=== PATIENT | male | born 1990 | race Hispanic/Latino ===

== ENCOUNTER 2018-04-21 12:03 | Emergency (ER) | payer OTHER, SELFPAY ==
[2018-04-21 12:07] VITALS: BP 133/76; PULSE 79; RESP 15; TEMP 36.2; O2SAT 98; BMI 32.3
--- NOTE | 2018-04-21 14:03 | ED.MALEGU ---
HPI - Male Genitourinary General Chief complaint: Urogenital-Male Stated complaint: STATES TESTICULAR PAIN AND BACK PAIN Time Seen by Provider: 04/21/18 13:47 Source: patient Mode of arrival: ambulatory Limitations: no limitations History of Present Illness HPI Narrative: 27-year-old male here for evaluation of left-sided testicular pain. He states that it started approximately 36 hr ago. No trauma. No inciting incident. No urinary symptoms. He states he has been diagnosed with epididymitis in the past. He states it was the ?non infectious ?kind. He states he is not concerned about a STD. No trauma. No changes in bowel. Related Data Home Medications Medication Instructions Recorded Confirmed carboxymethylcellulose sodium 1 drp OPHTHALMIC (EYE) DIRECTED 04/21/18 04/21/18 [Refresh Tears] diphenhydramine HCl [Benadryl] 25 mg PO BEDTIME PRN 04/21/18 04/21/18 Allergies Allergy/AdvReac Type Severity Reaction Status Date / Time No Known Drug Allergies Allergy Verified 04/21/18 12:07 Review of Systems Constitutional Denies fatigue and Denies fever(s) Cardiovascular Denies chest pain and Denies dyspnea Respiratory Denies dyspnea Gastrointestinal Gastrointestinal: Denies abdominal pain Genitourinary Denies hematuria, Denies difficulty urinating, Denies genital lesions, Reports genital pain, Denies flank pain, Denies penile discharge, Denies scrotal swelling, Denies testicular mass, Reports testicular pain, Denies urinary frequency, Denies urinary hesitancy, Denies urinary incontinence and Denies urinary urgency Musculoskeletal Denies myalgias and Denies arthralgias Integumentary/Breasts Denies lesions and Denies rash Endocrine Denies fatigue Hematologic/Lymphatic Denies easy bleeding and Denies easy bruising [facility] Medical History Healthy adult (Acute) Surgical History No pertinent past surgical history (Acute) Social History Smoking Status: Never smoker Exam Initial Vital Signs Initial Vital Signs: Vital Signs Temperature 97.2 F L 04/21/18 12:07 Pulse Rate 79 04/21/18 12:07 Respiratory Rate 15 04/21/18 12:07 Blood Pressure 133/76 H 08/21/18 12:07 Pulse Oximetry 98 04/21/18 12:07 Const General: cooperative, healthy appearing, comfortable, well developed, well groomed and No acute distress Orientation: alert and oriented x3 Resp Effort & Inspection: normal respiratory effort GI Inspection: non-distended Palpation: soft, No firm and No tender External: normal external exam, no hernia and nontender Meatus: meatus normal Scrotum: scrotum normal, no inguinal hernias, no masses and no scrotal swelling Testes: normal, testicular lie normal, epididymides normal, not enlarged, no masses, no testicular mass, no testicular swelling, no testicular tenderness and normal testicular lie Skin Lesions: no lesions Rashes: no rashes Neuro General: alert, awake and oriented x3 Extrem General: normal to inspection Psych Appearance: grossly normal and well kempt Course Orders Ordered: ED Orders 04/21/18 14:04 US scrotum Stat Vital Signs - 8 hr 04/21/18 12:07 04/21/18 14:49 Temperature 97.2 F L Pulse Rate 79 62 Respiratory Rate 15 15 Blood Pressure 133/76 H Blood Pressure [Left Arm] 131/75 H Pulse Oximetry 98 100 MDM - Male Genitourinary Imaging Data Ultrasound scrotum: Radiologist's impression: [address] [address] Ultrasound Report Signed Patient: León Cantrell [facility]#: [id number] : 1990Acct:[id number] Age/Sex: 27 / MDate of Service: 04/21/18 Loc: ED Accession Number: [id number] Procedure: US scrotum Ordering Provider: Ronnie De Oliveira D.O. PROCEDURE: US SCROTUM INDICATIONS: Left testicular pain concern for torsion TECHNIQUE: Real-time scanning was performed of the scrotum and testicles, with image documentation. Color and pulse Doppler interrogation was performed of both testicles. COMPARISON: None. FINDINGS: Right: Testicle is normal in size at 4.7 x 2.1 x 2 point cm, and homogenous in echotexture. Epididymis is normal in overall size and morphology. No hydrocele or varicoceles. Overlying scrotal skin is normal in thickness. Left: Testicle is normal in size at 4.5 x 2.2 x 3.3 cm cm, and homogeneous in echotexture. Epididymis is normal in overall size and morphology. No hydrocele or varicoceles. Overlying scrotal skin is normal in thickness. Small epididymal head cysts are identified measuring 4-5 mm. Doppler: Color and pulse Doppler demonstrate normal and symmetric arterial flow in both testicles. IMPRESSION: Unremarkable testicular sonogram. There is no evidence of testicular torsion, epididymal orchitis, or testicular mass. Dictated by: Noah Perez M.D. on 04/21/2018 at 14:46 Approved by: Noah Perez M.D. on 04/21/2018 at 14:50 MDM Narrative Medical decision making narrative: No signs of torsion. Urine unremarkable. No fevers. Benign abdominal exam. Suspect epididymitis. Patient states that he is not concerned about any sexually transmitted diseases. Does not want treated for that. We discussed symptom treatment to include nonsteroidal anti-inflammatories support and ice. He was given return precautions. He expressed understanding and agreement with plan Discharge Plan Departure Patient Disposition: Home Clinical Impression: Epididymitis Instructions: Epididymitis Activity Restrictions/Additional Instructions: Recommend that you wear supportive clothing. You can take Motrin/ibuprofen every 8 hr for discomfort. You can ice the area as needed as well. Call your primary care doctor for a follow-up. Return to the emergency department for any new or worsening symptoms Prescriptions: No Action carboxymethylcellulose sodium [Refresh Tears] 0.5 % drops 1 drp ophthalmic (eye) DIRECTED RF: 0 diphenhydramine HCl [Benadryl] 25 mg Capsule 25 mg PO BEDTIME PRN (Reason: Sleep) RF: 0
[2018-04-21 14:49] VITALS: BP 131/75; PULSE 62; RESP 15; O2SAT 100
[2018-04-21] MEDS: IBUPROFEN 400 MG TABLET 800 MG PO (16:15)
[2018-04-21 16:26] VITALS: BP 134/78; PULSE 72; RESP 12; O2SAT 100
== END 2018-04-21 16:27 | disposition home or self-care (01) ==
PROVIDERS: Emergency Provider Emergency Medicine
DX: N45.1 Epididymitis (principal)
CPT/HCPCS: 76870; 81003; 99283; 99284

== ENCOUNTER 2018-07-25 20:27 | Emergency (ER) | payer OTHER, SELFPAY ==
[2018-07-25 20:34] VITALS: BP 134/79; PULSE 97; RESP 16; TEMP 36.9; O2SAT 97; BMI 33.9
[2018-07-25 20:40] VITALS: BP 134/79; PULSE 97; RESP 16; TEMP 36.9; O2SAT 94; BMI 33.9
--- NOTE | 2018-07-25 20:44 | ED.URI ---
HPI - URI/Sore Throat <ONDINA Li - Last Filed: 07/25/18 22:19> General Chief Complaint: Upper Respiratory Symptoms Stated Complaint: SORE THROAT FOR THREE WEEKS Time Seen by Provider: 07/25/18 20:44 Source: patient Mode of arrival: ambulatory Limitations: no limitations History of Present Illness HPI Narrative: Healthy 27-year-old healthy male that is a nonsmoker here for complaint of sore throat for the past 3 weeks. He has been seen for this a couple times by his primary care provider. He was treated with steroids and Garita for his pain. He states that it helped his symptoms for couple of days but then returned. He states that the pain medications are not helping his symptoms. He denies having any fevers. Positive p.o. intake. No shortness of breath. No chest pain. He denies any other concerns or complaints at this time. He denies any stressors relievers of his pain. MD Complaint: sore throat Related Data Home Medications Medication Instructions Recorded Confirmed carboxymethylcellulose sodium 1 drp OPHTHALMIC (EYE) DIRECTED 04/21/18 04/21/18 [Refresh Tears] diphenhydramine HCl [Benadryl] 25 mg PO BEDTIME PRN 04/21/18 04/21/18 Allergies Allergy/AdvReac Type Severity Reaction Status Date / Time fluoxetine Allergy Verified 07/25/18 20:34 Review of Systems <ONDINA Li - Last Filed: 07/25/18 22:19> Constitutional Denies chills, Denies fever(s), Denies lethargy and Denies weakness Eyes Denies change in vision, Denies eye discharge, Denies irritation and Denies loss of vision ENT Ears, Nose, Mouth, and Throat: Reports sore throat Cardiovascular Denies chest pain, Denies irregular heart rhythm, Denies lightheadedness, Denies palpitations, Denies dyspnea, Denies dyspnea on exertion and Denies orthopnea Respiratory Denies cough, Denies dyspnea, Denies dyspnea on exertion and Denies wheezing Gastrointestinal Gastrointestinal: Denies abdominal pain, Denies change in bowel habits, Denies diarrhea, Denies nausea and Denies vomiting Genitourinary Denies hematuria, Denies flank pain, Denies urinary incontinence and Denies urinary urgency Musculoskeletal Denies back pain, Denies muscle weakness, Denies numbness and Denies tingling Integumentary/Breasts Denies pruritus, Denies erythema, Denies rash and Denies wounds Neurologic Denies confusion, Denies loss of vision, Denies numbness, Denies tingling and Denies weakness Psychiatric Denies anxiety, Denies confusion, Denies depression, Denies homicidal ideation and Denies suicidal ideation Endocrine Denies palpitations Hematologic/Lymphatic Denies easy bruising Allergic/Immunologic Denies wheezing Exam <ONDINA Li - Last Filed: 07/25/18 22:19> Initial Vital Signs Initial Vital Signs: Vital Signs Temperature 98.5 F 07/25/18 20:34 Pulse Rate 97 H 07/25/18 20:34 Respiratory Rate 16 07/25/18 20:34 Blood Pressure 134/79 07/25/18 20:34 Pulse Oximetry 97 07/25/18 20:34 Const General: cooperative and well developed Nutritional Appearance: well nourished Orientation: alert, awake, oriented x3 and not confused HENMT Mouth: oral mucosae normal, oropharynx normal and moist mucous membranes Throat: posterior oropharynx normal Eyes General: appearance normal, both eyes and all related structures Conjunctivae: conjunctivae normal Sclera: sclerae normal Pupils: PERRL EOM: EOM intact bilaterally Neck Neck: normal visual inspection, trachea midline, No lymphadenopathy, No midline deformity and No JVD Lymphatic: No lymphedema Resp Effort & Inspection: normal respiratory effort, able to speak in complete sentences, no respiratory distress and no use of accessory muscles Auscultation: clear to auscultation bilaterally, no rales, no rhonchi and no wheezes Cardio Rate: regular rate Rhythm: regular rhythm Heart Sounds: no click, no gallops, no murmurs and no rubs Skin General: no rashes or lesions noted, No jaundice and No petechiae Neuro General: alert, oriented x3, gait normal and no focal motor deficits Speech: speech normal <Garfield Contreras DO - Last Filed: 07/26/18 06:21> Initial Vital Signs Initial Vital Signs: Vital Signs Temperature 98.5 F 07/25/18 20:34 Pulse Rate 97 H 07/25/18 20:34 Respiratory Rate 16 07/25/18 20:34 Blood Pressure 134/79 07/25/18 20:34 Pulse Oximetry 97 07/25/18 20:34 Course <ONDINA Li - Last Filed: 07/25/18 22:19> Orders Ordered: Discontinued Medications Benzocaine (Cepacol Lozenge) 1 each PO NOW ONE Stop: 07/25/18 22:16 Last Admin: 07/25/18 22:22 Dose: Vital Signs - 8 hr 07/25/18 22:23 Pulse Rate 83 Respiratory Rate 18 Pulse Oximetry 97 <Garfield Contreras DO - Last Filed: 07/26/18 06:21> Orders Ordered: Discontinued Medications Benzocaine (Cepacol Lozenge) 1 each PO NOW ONE Stop: 07/25/18 22:16 Last Admin: 07/25/18 22:22 Dose: Vital Signs - 8 hr 07/25/18 22:23 Pulse Rate 83 Respiratory Rate 18 Pulse Oximetry 97 MDM - URI/Sore Throat <ONDINA Li - Last Filed: 07/25/18 22:19> Lab Data Lab Results 07/25/18 Range/Units 21:20 Influenza A & B (PCR) Negative (Negative) Point of Care Testing Rapid Strep A Negative MDM Narrative Medical decision making narrative: Rapid strep test was obtained was negative. Influenza swab was also obtained and was negative. Normal exam do not see any abnormalities to the posterior pharynx area. Suspect he has had multiple viral illnesses over the past several weeks. Plenty of fluids and rest. [id number] ibuprofen as needed for any discomfort and salt water gargles a few times a day to help with irritation to the throat. Recommend follow up primary care for the next few days for re-evaluation. If continued pain discussed with primary care provider ENT referral for further evaluation. For any worsening symptoms return emergency room. <Garfield Contreras DO - Last Filed: 07/26/18 06:21> Lab Data Lab Results 07/25/18 Range/Units 21:20 Influenza A & B (PCR) Negative (Negative) Point of Care Testing Rapid Strep A Negative Discharge Plan Departure Patient Disposition: Home Clinical Impression: Acute viral pharyngitis Discharge Date/Time: 07/25/18 22:24 Interventions: ED Discharge Assessment Last Done: 07/25/18 22:23 Instructions: DI for Viral Pharyngitis Activity Restrictions/Additional Instructions: Influenza swab and also 0 strep was negative. Signs and symptoms presents as viral pharyngitis. However due to length of symptoms recommend follow up primary care provider next few days for re-evaluation. Use [id number] ibuprofen as needed for any discomfort and inflammation. Plenty of fluids and rest. Salt water gargles a few times today to help inflammation to the sore throat area. If symptoms do not resolve discussed with primary care provider referral to ENT. For any worsening symptoms return to the emergency room. Prescriptions: No Action carboxymethylcellulose sodium [Refresh Tears] 0.5 % drops 1 drp ophthalmic (eye) DIRECTED RF: 0 diphenhydramine HCl [Benadryl] 25 mg Capsule 25 mg PO BEDTIME PRN (Reason: Sleep) RF: 0 Referrals: [facility] [Provider Group] <Garfield Contreras, - Last Filed: 07/26/18 06:21> Cosign ED Attending Smiley Attestation: I was immediately available in the department for consultation. Documentation has been reviewed. I agree with assessment and plan.
[2018-07-25 22:12] LABS: Influenza A and B by PCR Rapid Negative (Negative)
[2018-07-25 22:23] VITALS: PULSE 83; RESP 18; O2SAT 97
== END 2018-07-25 22:24 | disposition home or self-care (01) ==
PROVIDERS: Emergency Provider Nurse Practitioner Family
DX: J02.8 Acute pharyngitis due to other specified organisms (principal)
CPT/HCPCS: 87400; 87880; 99282; 99283

== ENCOUNTER 2018-10-08 17:33 | Emergency (ER) | payer OTHER, SELFPAY ==
[2018-10-08 17:35] VITALS: BP 136/82; PULSE 85; RESP 18; TEMP 36.8; O2SAT 98
--- NOTE | 2018-10-08 17:37 | DI.RAD.S_ITS ---
PROCEDURE: XR CHEST 1V INDICATIONS: Chest pain TECHNIQUE: One view of the chest was acquired. COMPARISON: None. FINDINGS: Surgical changes and devices: None. Lungs and pleura: An incomplete inspiratory result is noted, causing a crowded appearance to the lung markings. No focal infiltrates are seen. No pneumothorax or significant pleural effusions are seen. Mediastinum: Mediastinal contours appear normal. Heart size is normal. Bones and chest wall: No suspicious bony lesions. Overlying soft tissues appear unremarkable. IMPRESSION: Limited portable chest examination, without a significant cardiopulmonary abnormality identified. Dictated by: Jose Arellano M.D. on 10/08/2018 at 17:06 Approved by: Jose Arellano M.D. on 10/08/2018 at 17:07
[2018-10-08 17:53] VITALS: BP 136/82; PULSE 78; RESP 16; TEMP 36.8; O2SAT 96
--- NOTE | 2018-10-08 18:07 | PC.NURSE ---
Per Dr De Oliveira, orders will wait until eval by Dr Yepez
[2018-10-08 18:39] VITALS: BP 110/59; PULSE 81; RESP 17; O2SAT 98
--- NOTE | 2018-10-08 18:50 | ED_ITS ---
HPI - Chest Pain General Chief Complaint: Chest Pain Stated Complaint: CHEST PAIN Time Seen by Provider: 10/08/18 17:48 Source: patient Mode of arrival: ambulatory Limitations: no limitations History of Present Illness HPI narrative: patient is a 28-year-old male who presents with heart fluttering. As he says he felt some chest discomfort last night felt like his heart was flip-flopping around in his chest. He took 2 aspirin at stopped. His however today he felt like things just were not quite right again. It is in the center of his chest nonradiating. His last night he felt a little short of breath but has not felt that today. He has no dizziness or lightheadedness no productive cough. He denies any smoking or alcohol use. He says he started taking Adderall however it is a low dose 2.5 mg and he took his 1st dose 2 days ago nothing since then. Related Data Home Medications Medication Instructions Recorded Confirmed carboxymethylcellulose sodium 1 drp OPHTHALMIC (EYE) DIRECTED 04/21/18 04/21/18 [Refresh Tears] diphenhydramine HCl [Benadryl] 25 mg PO BEDTIME PRN 04/21/18 04/21/18 Allergies Allergy/AdvReac Type Severity Reaction Status Date / Time fluoxetine Allergy Verified 07/25/18 20:34 Review of Systems Review of Systems GENERAL: Denies chills, fatigue, malaise, fever, sweats, travel HEENT: Denies sinus pain, ear pain, sore throat, difficulty swallowing, neck pain RESPIRATORY: Denies dyspnea, cough, wheezing, hemoptysis, sputum. CARDIOVASCULAR: See HPI GASTROINTESTINAL: Denies nausea, vomiting, abdominal pain, diarrhea, constipation, melena. : Denies dysuria, frequency, incontinence, hematuria, urinary retention, flank pain. MUSCULOSKELETAL: Denies weakness, joint pain, or bony pain SKIN: No rash, no erythema, no pruritus NEUROLOGIC: Denies weakness, dizziness, headache, numbness, change in speech, confusion PSYCHIATRIC: No concerning psychosocial issues. 12 point review of systems is negative except for those stated above and HPI PFSH Medical History Adult ADHD (Acute) Healthy adult (Acute) Surgical History No pertinent past surgical history (Acute) Social History Smoking Status: Never smoker Social History Smoking Status: Never smoker Exam Initial Vital Signs Initial Vital Signs: Vital Signs Temperature 98.3 F 10/08/18 17:35 Pulse Rate 85 10/08/18 17:35 Respiratory Rate 18 10/08/18 17:35 Blood Pressure 136/82 10/08/18 17:35 Pulse Oximetry 98 10/08/18 17:35 GENERAL: Alert young male no acute distress HEENT: Head atraumatic,EOMI, pupils reactive CARDIOVASCULAR: Regular rate and rhythm without murmurs, rubs or gallops. pain is not reproducible with palpation RESPIRATORY: Breath sounds equal bilaterally, no wheezes rales or rhonchi. ABDOMEN: Soft, nontender. Normoactive bowel sounds all 4 quadrants. No guarding or rebound EXTREMITIES: Normal range of motion, no clubbing or edema. Neurovascularly intact NEUROLOGICAL: Alert and oriented x4.Normal gait and speech. Cranial nerves II through XII grossly intact. SKIN: Warm, dry, no laceration, no petechiae, no rashes or lesions. Course Orders Ordered: ED Orders 10/08/18 17:37 XR chest 1V Stat EKG-12 Lead Stat 10/08/18 18:40 EKG-12 Lead Stat 10/08/18 18:45 Complete Blood Count AUTO DIFF Stat Comprehensive Metabolic Panel Stat Lipase Stat Troponin & CK Cardiac Panel Stat Discontinued Medications Aspirin (Aspirin Chew) 324 mg PO NOW ONE Stop: 10/08/18 18:41 Last Admin: 10/08/18 19:03 Dose: Not Given Vital Signs - 8 hr 10/08/18 17:35 10/08/18 17:53 10/08/18 18:39 Temperature 98.3 F 98.3 F Pulse Rate 85 78 81 Respiratory Rate 18 16 17 Blood Pressure 136/82 Blood Pressure [Left Arm] 136/82 110/59 L Pulse Oximetry 98 96 98 10/08/18 19:42 Temperature Pulse Rate 93 H Respiratory Rate 21 Blood Pressure 118/55 L Blood Pressure [Left Arm] Pulse Oximetry 96 MDM - Chest Pain Lab Data Attestation: I reviewed the patient's lab results. Result diagrams: 10/08/18 18:45 10/08/18 18:45 Lab Results 10/08/18 10/08/18 Range/Units 18:45 18:45 WBC 9.9 (4.5-11.0) X10^3/uL RBC 5.17 (4.5-5.9) X10^6/uL Hgb 15.7 (13.5-17.5) g/dL Hct 45.9 (41-53) % MCV 88.7 (80-100) fL MCH 30.3 (26-34) PG MCHC 34.2 (30-36) % RDW 14.1 (11.6-14.8) % Plt Count 188 (150-400) X10^3/uL Neut % (Auto) 65.4 (50-75) % Lymph % (Auto) 24.8 L (25-40) % Greenlee % (Auto) 8.3 (3-14) % Eos % (Auto) 0.8 L (2-4) % Baso % (Auto) 0.7 (0-2) % Neut # (Auto) 6400 (7541-1666) /uL Lymph # (Auto) 2400 (9290-1287) /uL Greenlee # (Auto) 800 (0-900) /uL Eos # (Auto) 100 (0-450) /uL Baso # (Auto) 100 (0-100) /uL Sodium 140 (137-145) mmol/L Potassium 4.1 (3.4-5.1) mmol/L Chloride 104 (98-107) mmol/L Carbon Dioxide 26 (22-32) mmol/L BUN 18 (9-20) mg/dL Creatinine 1.10 (0.66-1.25) mg/dL Estimated GFR > 60.0 (>60) mL/min BUN/Creatinine Ratio 16.4 (6-22) Glucose 98 (70-100) mg/dL Calcium 9.3 (8.4-10.2) mg/dL Total Bilirubin 0.4 (0.2-1.3) mg/dL AST 27 (17-59) IU/L ALT 47 (21-72) IU/L Alkaline Phosphatase 64 (38-126) U/L Total Creatine Kinase 76 (55-170) U/L CK-MB (CK-2) TNP CK-MB (CK-2) Rel Index TNP Troponin I < 0.012 (0.01-0.034) ng/mL Total Protein 7.8 (6.3-8.2) g/dL Albumin 4.5 (3.5-5.0) g/dL Globulin 3.3 (1.7-4.1) g/dL Albumin/Globulin Ratio 1.4 (1.0-2.8) Lipase 82 (23-300) U/L Imaging Data Chest x-ray: Radiologist's impression: PROCEDURE: XR CHEST 1V INDICATIONS: Chest pain TECHNIQUE: One view of the chest was acquired. COMPARISON: None. FINDINGS: Surgical changes and devices: None. Lungs and pleura: An incomplete inspiratory result is noted, causing a crowded appearance to the lung markings. No focal infiltrates are seen. No pneumothorax or significant pleural effusions are seen. Mediastinum: Mediastinal contours appear normal. Heart size is normal. Bones and chest wall: No suspicious bony lesions. Overlying soft tissues appear unremarkable. IMPRESSION: Limited portable chest examination, without a significant cardiopulmonary abnormality identified. Dictated by: Jose Arellano M.D. on 10/08/2018 at 17:06 ECG Data Attestation: I personally reviewed and interpreted this ECG as follows: Prior ECG tracings: not available for review Interpretation: EKG 1.: Normal sinus rhythm rate 78 T-wave inversion noted in lead [address] changes ER interval 180 no priors to compare EKG 2.: Normal sinus rhythm rate 69 unchanged from prior MDM Narrative Medical decision making narrative: Multiple etiologies for patient's symptoms considered including: arrhythmia, paroxysmal AFib, PE, acute coronary syndrome, GERD patient having palpitations, sinus rhythm on monitor. Recommend patient follow up with PCP as and possible Holter monitor. Discharge Plan Departure Patient Disposition: Home Clinical Impression: Heart palpitations Discharge Date/Time: 10/08/18 19:43 Interventions: ED Discharge Assessment Last Done: 10/08/18 19:42 Instructions: DI for Atypical Chest Pain, DI for Palpitations Activity Restrictions/Additional Instructions: *You have been diagnosed with heart palpitations, atypical chest pain *What to do: may require Holter monitor which monitor she your heart rhythm. Please discuss this with her primary care provider. At this time blood work x- ray and EKG are Reassuring *Continue to take medications as directed *Follow up with your primary care provider in 2-3 days *Return to ER if you should have increasing heart palpitations, dizziness, lightheadedness, chest pain or any new, worsening or concerning symptoms Prescriptions: No Action carboxymethylcellulose sodium [Refresh Tears] 0.5 % drops 1 drp ophthalmic (eye) DIRECTED RF: 0 diphenhydramine HCl [Benadryl] 25 mg Capsule 25 mg PO BEDTIME PRN (Reason: Sleep) RF: 0 [facility]: [facility] [Provider Group]
[2018-10-08 19:13] LABS: Add Manual Diff / Slide Review NO; Basophils Absolute Auto 100 /uL (0-100); Basophils Percent Auto 0.7 % (0-2); Eosinophils Absolute Auto 100 /uL (0-450); Eosinophils Percent Auto 0.8 % (2-4); Hematocrit 45.9 % (41-53); Hemoglobin 15.7 g/dL (13.5-17.5); Lymphocytes Absolute Auto 2400 /uL (1100-4500); Lymphocytes Percent Auto 24.8 % (25-40); Mean Corpuscular HGB Conc 34.2 % (30-36); Mean Corpuscular Hemoglobin 30.3 PG (26-34); Mean Corpuscular Volume 88.7 fL (80-100); Monocytes Absolute Auto 800 /uL (0-900); Monocytes Percent Auto 8.3 % (3-14); Neutrophils Absolute Auto 6400 /uL (1500-7000); Neutrophils Percent Auto 65.4 % (50-75); Platelet Count 188 X10^3/uL (150-400); Red Blood Cell Count 5.17 X10^6/uL (4.5-5.9); Red Cell Distribution Width 14.1 % (11.6-14.8); White Blood Cell Count 9.9 X10^3/uL (4.5-11.0)
[2018-10-08 19:18] LABS: Alanine Aminotransferase 47 IU/L (21-72); Albumin 4.5 g/dL (3.5-5.0); Albumin Globulin Ratio 1.4 (1.0-2.8); Alkaline Phosphatase 64 U/L (38-126); Aspartate Aminotransferase 27 IU/L (17-59); BUN Creatinine Ratio 16.4 (6-22); Bilirubin Total 0.4 mg/dL (0.2-1.3); Blood Urea Nitrogen 18 mg/dL (9-20); Calcium 9.3 mg/dL (8.4-10.2); Carbon Dioxide 26 mmol/L (22-32); Chloride 104 mmol/L (98-107); Creatine Kinase 76 U/L (55-170); Estimated Glomerular Filt Rate > 60.0 mL/min (>60); Globulin 3.3 g/dL (1.7-4.1); Glucose 98 mg/dL (70-100); HEMOLYSIS 29 (0-50); Lipase 82 U/L (23-300); Potassium 4.1 mmol/L (3.4-5.1); Sodium 140 mmol/L (137-145); Total Protein 7.8 g/dL (6.3-8.2)
[2018-10-08 19:33] LABS: Troponin I < 0.012 ng/mL (0.01-0.034)
[2018-10-08 19:42] VITALS: BP 118/55; PULSE 93; RESP 21; O2SAT 96
== END 2018-10-08 19:43 | disposition home or self-care (01) ==
PROVIDERS: Emergency Provider Emergency Medicine
DX: R00.2 Palpitations (principal)
CPT/HCPCS: 36415; 36591; 71045; 80053; 82550; 83690; 84484; 85025; 93005; 93041; 99284; 99285

== ENCOUNTER 2018-12-14 21:01 | Emergency (ER) | payer OTHER, SELFPAY ==
[2018-12-14 21:03] VITALS: BP 122/76; PULSE 72; RESP 14; TEMP 36.7; O2SAT 100
[2018-12-14 23:59] VITALS: BP 112/72; PULSE 62; RESP 16; TEMP 36.6; O2SAT 98
--- NOTE | 2018-12-15 00:39 | ED_ITS ---
HPI - Anxiety General Chief Complaint: Anxiety Stated Complaint: ANXIETY Time Seen by Provider: 12/15/18 00:38 Source: patient Mode of arrival: ambulatory Limitations: no limitations History of Present Illness HPI narrative: The patient is a [place] . 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 He moved to this area from [place] 4 months ago. He has been under treatment for PTSD, opting for counseling. He is currently under no medications for PTSD treatment. He has not sought out a new counselor since moving to this area. He was out with friends 2 days ago. He had several alcoholic drinks. He developed anxiety yesterday. The anxiety persists today. When I entered the room he was up and pacing around the room. He is not experience insomnia. He denies depression. He has no crying episodes. He is not experiencing flashbacks. He has no suicidal or homicidal thought. He does not drink alcohol daily, he was out for a week and with friends. He has no drug use. Related Data Home Medications Medication Instructions Recorded Confirmed carboxymethylcellulose sodium 1 drp OPHTHALMIC (EYE) DIRECTED 04/21/18 04/21/18 [Refresh Tears] diphenhydramine HCl [Benadryl] 25 mg PO BEDTIME PRN 04/21/18 04/21/18 Previous Rx's Medication Instructions Recorded lorazepam [Ativan] 1 mg PO Q12H PRN #10 tab 12/15/18 Allergies Allergy/AdvReac Type Severity Reaction Status Date / Time fluoxetine Allergy Verified 12/14/18 21:05 Review of Systems Review of Systems ROS Unobtainable: All systems reviewed & are unremarkable except as noted in HPI and below Constitutional Denies headache(s) and Denies weakness ENT Ears, Nose, Mouth, and Throat: Denies dizziness and Denies headache(s) Cardiovascular Denies chest pain, Denies irregular heart rhythm, Denies lightheadedness, Denies palpitations and Denies dyspnea Respiratory Denies cough, Denies dyspnea and Denies wheezing Gastrointestinal Gastrointestinal: Denies abdominal pain, Denies change in bowel habits, Denies diarrhea, Denies nausea and Denies vomiting Musculoskeletal Denies back pain Integumentary/Breasts Denies rash Neurologic Denies confusion, Denies dizziness, Denies headache(s) and Denies weakness Psychiatric Denies confusion, Denies hopelessness, Denies irritability, Denies homicidal ideation and Denies suicidal ideation Endocrine Denies palpitations Allergic/Immunologic Denies wheezing [facility] Medical History Adult ADHD (Acute) Healthy adult (Acute) Surgical History No pertinent past surgical history (Acute) Social History Smoking Status: Never smoker Social History Smoking Status: Never smoker Exam Initial Vital Signs Initial Vital Signs: Vital Signs Temperature 98.1 F 12/14/18 21:03 Pulse Rate 72 12/14/18 21:03 Respiratory Rate 14 12/14/18 21:03 Blood Pressure 122/76 12/14/18 21:03 Pulse Oximetry 100 12/14/18 21:03 Const General: cooperative, well developed and anxious Nutritional Appearance: well nourished Orientation: alert, awake, oriented x3 and not confused Eyes General: appearance normal, both eyes and all related structures Eyelids: eyelids normal Conjunctivae: conjunctivae normal Sclera: sclerae normal Pupils: PERRL EOM: EOM intact bilaterally Neck Neck: No JVD Cardio Rate: regular rate Rhythm: regular rhythm Heart Sounds: no click, no gallops, no murmurs and no rubs Pulses: normal peripheral pulses GI Inspection: non-distended Palpation: soft, no hepatosplenomegaly and No tender Auscultation: normal bowel sounds Skin General: no rashes or lesions noted Neuro General: alert, oriented x3, gait normal and no focal motor deficits Speech: speech normal Extrem General: full ROM, no clubbing, cyanosis or edema, no pedal edema and no calf tenderness Psych Appearance: well kempt Mental Status: mental status grossly normal Mood: anxious mood Attitude: cooperative Thought Process: normal Thought Content: normal and suicidality Judgment: judgment good Course Course Narrative: The patient has anxiety associated with PTSD. He is currently not taking medications for PTSD or anxiety. he needs to establish care with a local counselor. Vital Signs - 8 hr 12/14/18 21:03 12/14/18 23:59 Temperature 98.1 F 97.9 F Pulse Rate 72 62 Respiratory Rate 14 16 Blood Pressure 122/76 Blood Pressure [Right Arm] 112/72 Pulse Oximetry 100 98 Discharge Plan Departure Patient Disposition: Home Clinical Impression: Post traumatic stress disorder (PTSD) Instructions: Post-traumatic Stress Disorder Activity Restrictions/Additional Instructions: Ativan 1 mg 2 times daily as needed for anxiety. I would recommend bedtime use only if you are experiencing insomnia. [facility] care with a local PTSD cancer. Follow-up in the ER as needed. Prescriptions: New lorazepam [Ativan] 1 mg tablet 1 mg PO Q12H PRN (Reason: anxiety) Qty: 10 RF: 0 No Action carboxymethylcellulose sodium [Refresh Tears] 0.5 % drops 1 drp ophthalmic (eye) DIRECTED RF: 0 diphenhydramine HCl [Benadryl] 25 mg Capsule 25 mg PO BEDTIME PRN (Reason: Sleep) RF: 0
--- NOTE | 2018-12-15 00:45 | PC.NURSE ---
Dr. Woo at bedside to assess patient.
[2018-12-15] MEDS: LORazepam 0.5 MG TABLET 1 MG PO (01:02)
[2018-12-15 01:03] VITALS: BP 116/71; PULSE 54; RESP 16; TEMP 36.4; O2SAT 98
== END 2018-12-15 01:08 | disposition home or self-care (01) ==
PROVIDERS: Emergency Provider Emergency Medicine
DX: F43.10 Post-traumatic stress disorder, unspecified (principal)
CPT/HCPCS: 99282; 99283

== ENCOUNTER 2018-12-16 20:31 | Emergency (ER) | payer OTHER, SELFPAY ==
[2018-12-16 20:37] VITALS: BP 111/75; PULSE 78; RESP 18; TEMP 36.6; O2SAT 97; BMI 33.2
--- NOTE | 2018-12-16 21:07 | ED.DIZZY ---
HPI - Dizziness General Chief Complaint: Dizziness Stated Complaint: DIZZINESS, LIGHTHEADED, NAUSEA Time Seen by Provider: 12/16/18 21:06 Source: patient Mode of arrival: ambulatory Limitations: no limitations History of Present Illness HPI Narrative: Patient is a 28-year-old male. Has a history of PTSD. He is here for evaluation of several days of not feeling well. Feeling dizzy. Having some neck pain. Some nausea. He states this all started on Friday after he spent Friday night drinking. He is also currently on antibiotics for an infection of the head on the back of his neck. Related Data Home Medications Medication Instructions Recorded Confirmed carboxymethylcellulose sodium 1 drp OPHTHALMIC (EYE) DIRECTED 04/21/18 04/21/18 [Refresh Tears] diphenhydramine HCl [Benadryl] 25 mg PO BEDTIME PRN 04/21/18 04/21/18 Previous Rx's Medication Instructions Recorded lorazepam [Ativan] 1 mg PO Q12H PRN #10 tab 12/15/18 Allergies Allergy/AdvReac Type Severity Reaction Status Date / Time fluoxetine Allergy Verified 12/14/18 21:05 Review of Systems Constitutional Denies fever(s) and Denies headache(s) ENT Ears, Nose, Mouth, and Throat: Denies vertigo, Reports dizziness, Denies headache(s) and Reports disequilibrium Cardiovascular Denies chest pain and Denies dyspnea Respiratory Denies dyspnea Gastrointestinal Gastrointestinal: Reports nausea and Denies vomiting Musculoskeletal Denies myalgias and Denies arthralgias Integumentary/Breasts Denies rash Neurologic Denies vertigo, Reports dizziness, Denies headache(s) and Reports disequilibrium Hematologic/Lymphatic Denies easy bleeding and Denies easy bruising [facility] Medical History Adult ADHD (Acute) Healthy adult (Acute) Social History Smoking Status: Never smoker Exam Initial Vital Signs Initial Vital Signs: Vital Signs Temperature 97.9 F 12/16/18 20:37 Pulse Rate 78 12/16/18 20:37 Respiratory Rate 18 12/16/18 20:37 Blood Pressure 111/75 12/16/18 20:37 Pulse Oximetry 97 12/16/18 20:37 Const General: cooperative, healthy appearing, comfortable, well developed, well groomed and No acute distress Orientation: alert, awake and oriented x3 HENMT Head: normal to inspection and normocephalic Ears: hearing grossly normal bilaterally and TM's normal bilaterally Resp Effort & Inspection: normal respiratory effort Auscultation: clear to auscultation bilaterally Cardio Rate: regular rate Rhythm: regular rhythm GI Inspection: non-distended Skin Lesions: no lesions Rashes: no rashes Neuro General: alert, awake and oriented x3 Cranial Nerves: CN's II-XI intact bilaterally Cognition: normal cognition Speech: speech normal Gait: normal gait Motor: muscle tone normal throughout Sensory Exam: no sensory deficits noted Extrem General: normal to inspection and capillary refill normal Psych Appearance: grossly normal and well kempt Course Orders Ordered: Discontinued Medications Ondansetron HCl (Zofran Odt Prepack) 1 bottle MISC SEEINSTR ONE Stop: 12/16/18 21:23 Last Admin: 12/16/18 21:28 Dose: 1 bottle Vital Signs - 8 hr 12/16/18 20:37 Temperature 97.9 F Pulse Rate 78 Respiratory Rate 18 Blood Pressure 111/75 Pulse Oximetry 97 MDM - Dizziness MDM Narrative Medical decision making narrative: Patient with a normal exam here in the emergency department. Low suspicion for CVA or TIA. I do suspect that his GI symptoms are related to the antibiotics he is taking and the alcohol that he had the other night. Patient also is fairly anxious about up with symptoms under the car also contributing to his overall condition. tried to reassure the patient that there is nothing emergent that could be found. Hold on further workup for now. He is given return precautions and follow-up instructions. He expressed understanding and agreement. Discharge Plan Departure Patient Disposition: Home Clinical Impression: Nausea, Malaise Discharge Date/Time: 12/16/18 21:33 Interventions: ED Discharge Assessment Last Done: 12/16/18 21:32 Instructions: DI for Dizziness-Nonvertigo Activity Restrictions/Additional Instructions: Keep all of your scheduled medical appointments. Take the medication as directed. Return to the emergency department for any new or worsening symptoms Prescriptions: No Action carboxymethylcellulose sodium [Refresh Tears] 0.5 % drops 1 drp ophthalmic (eye) DIRECTED RF: 0 diphenhydramine HCl [Benadryl] 25 mg Capsule 25 mg PO BEDTIME PRN (Reason: Sleep) RF: 0 lorazepam [Ativan] 1 mg tablet 1 mg PO Q12H PRN (Reason: anxiety) Qty: 10 RF: 0
[2018-12-16] MEDS: ONDANSETRON 4 MG ODT PREPACK 1 BOTTLE MISC (21:28)
== END 2018-12-16 21:33 | disposition home or self-care (01) ==
PROVIDERS: Emergency Provider Emergency Medicine
DX: R11.0 Nausea (principal); R53.81 Other malaise; R42 Dizziness and giddiness
CPT/HCPCS: 99282; 99283

== ENCOUNTER 2019-07-20 16:58 | Emergency (ER) | payer OTHER, SELFPAY ==
[2019-07-20 16:59] VITALS: BP 137/81; PULSE 81; RESP 16; TEMP 36; O2SAT 97; BMI 33.9
--- NOTE | 2019-07-20 18:12 | DI.RAD.S_ITS ---
PROCEDURE: XR CHEST 2V INDICATIONS: Cough, SOB TECHNIQUE: 2 views of the chest were acquired. COMPARISON: [facility], [place], XR CHEST 1V, 10/08/2018, 18:00. FINDINGS: Surgical changes and devices: None. Lungs and pleura: Lungs are clear. No pleural effusions or pneumothorax. Mediastinum: Mediastinal contours are normal. Heart size is normal. Bones and chest wall: No suspicious bony abnormalities. Soft tissues appear unremarkable. IMPRESSION: Reduced inspiratory volume, no acute disease. Source of cough is not seen. Dictated by: Radhames Nielsen M.D. on 07/20/2019 at 18:42 Approved by: Radhames Nielsen M.D. on 07/20/2019 at 18:43
--- NOTE | 2019-07-20 18:15 | ED_ITS ---
HPI - URI/Sore Throat <ONDINA Rg - Last Filed: 07/20/19 21:30> General Chief Complaint: Upper Respiratory Symptoms Stated Complaint: STATES FLU LIKE SYMPTOMS, STIFF NECK Time Seen by Provider: 07/20/19 17:50 Source: patient Mode of arrival: Ambulatory History of Present Illness HPI Narrative: 28-year-old male presents who was recently seen in [facility] urgent [facility] yesterday for this similar complaint, presents emergency department today complaining of mostly dry cough with intermittent mucus production and sore throat for the past 5 days. He reports he was recently tested for influenza and strep throat, both test were negative yesterday. Patient is concerned that his throat is feeling worse today. He denies any nasal congestion at this time but reports postnasal drip. He denies chest pain, shortness of breath, abdominal pain, nausea, vomiting, diarrhea, or other concerns. Related Data Home Medications Medication Instructions Recorded Confirmed carboxymethylcellulose sodium 1 drp OPHTHALMIC (EYE) DIRECTED 04/21/18 04/21/18 [Refresh Tears] diphenhydramine HCl [Benadryl] 25 mg PO BEDTIME PRN 04/21/18 07/20/19 ketoconazole 1 applic TOPICAL DIRECTED 07/20/19 07/20/19 oseltamivir 75 mg PO DAILYX5 07/20/19 07/20/19 Previous Rx's Medication Instructions Recorded fluticasone propionate [Flonase 2 spray NASAL DAILY #15.8 ml 07/20/19 Allergy Relief] Allergies Allergy/AdvReac Type Severity Reaction Status Date / Time fluoxetine Allergy Severe Rash Verified 07/20/19 17:04 Review of Systems <ONDINA Rg - Last Filed: 07/20/19 21:30> Review of Systems Narrative: REVIEW OF SYSTEMS: GENERAL: Denies fevers. HENT: No head trauma or hearing loss. EYES: No loss of vision, double vision, eye pain, irritation or discharge. CARDIOVASCULAR: No chest pain or syncope. RESPIRATORY: No shortness of breath. Complains of cough, see HPI. GASTROINTESTINAL: No nausea, vomiting, diarrhea, or constipation. MUSCULOSKELETAL: No weakness or injury. INTEGUMENTARY: No rash, lesions, or pruritus. NEURO: No memory loss, or confusion. Patient History <ONDINA Rg - Last Filed: 07/20/19 21:30> Medical History Adult ADHD (Acute) Healthy adult (Acute) Surgical History No pertinent past surgical history (Acute) Social History Smoking Status: Never smoker alcohol intake frequency: holidays/special occasions only Substance Use Type: does not use Exam <ONDINA Rg - Last Filed: 07/20/19 21:30> Initial Vital Signs Initial Vital Signs: Vital Signs Temperature 96.8 F L 07/20/19 16:59 Pulse Rate 81 07/20/19 16:59 Respiratory Rate 16 07/20/19 16:59 Blood Pressure 137/81 07/20/19 16:59 Pulse Oximetry 97 07/20/19 16:59 PHYSICAL EXAMINATION: GENERAL: Well groomed, alert, and cooperative. Answers questions promptly and appropriately. Vital signs noted. HENT: Normocephalic, atraumatic. Ear canals patent. TMs intact without mucus or erythema. Oropharynx with erythema and postnasal drip. Tonsils are not present. EYES: Conjunctiva pink, sclera white, no periorbital swelling. No discharge. CHEST: Normal to inspection and without deformities. CARDIOVASCULAR: S1 and S2 sounds normal. Regular rate and rhythm, no murmurs, clicks, or bruits. RESPIRATORY: Normal respiratory rate, trachea midline, airway patent. No stridor, nasal flaring or accessory muscle use. Able to speak in full sentences. Lungs with occasional expiratory rhonchi that clears with cough. No wheezes present. MUSCULOSKELETAL: Normal gait and coordination. Equal tone and mass bilaterally. EXTREMITIES: Moves all extremities. SKIN: Warm, dry, soft, appropriate color for ethnicity. No lesions, rashes, or wounds. NEURO: Alert and Oriented X 3. Good coordination. CN III-XII grossly intact. No ataxia or cognitive issues. Negative Kernig's and Brudzinski. PSYCH: Appropriate affect and mood. <Alanna Yepez DO - Last Filed: 07/22/19 07:25> Initial Vital Signs Initial Vital Signs: Vital Signs Temperature 96.8 F L 07/20/19 16:59 Pulse Rate 81 07/20/19 16:59 Respiratory Rate 16 07/20/19 16:59 Blood Pressure 137/81 07/20/19 16:59 Pulse Oximetry 97 07/20/19 16:59 Course <ONDINA Rg - Last Filed: 07/20/19 21:30> Course Course Narrative: Patient was given dexamethasone and Toradol in the emergency department, he reports decreased sore throat. Orders Ordered: Discontinued Medications Dexamethasone (Decadron) 10 mg PO NOW ONE Stop: 07/20/19 18:08 Last Admin: 07/20/19 18:32 Dose: 10 mg Documented by: GWEN Ketorolac Tromethamine (Toradol) 30 mg IV NOW ONE Stop: 07/20/19 18:08 Last Admin: 07/20/19 19:08 Dose: Not Given Documented by: OBI Ketorolac Tromethamine (Toradol) 30 mg IM NOW ONE Stop: 07/20/19 18:24 Last Admin: 07/20/19 18:32 Dose: 30 mg Documented by: GWEN Vital Signs Vital signs: Vital Signs - 8 hr 07/20/19 16:59 07/20/19 19:26 Temperature 96.8 F L Pulse Rate 81 69 Respiratory Rate 16 Blood Pressure 137/81 134/65 Pulse Oximetry 97 98 <Alanna Yepez DO - Last Filed: 07/22/19 07:25> Orders Ordered: Discontinued Medications Dexamethasone (Decadron) 10 mg PO NOW ONE Stop: 07/20/19 18:08 Last Admin: 07/20/19 18:32 Dose: 10 mg Documented by: GWEN Ketorolac Tromethamine (Toradol) 30 mg IV NOW ONE Stop: 07/20/19 18:08 Last Admin: 07/20/19 19:08 Dose: Not Given Documented by: OBI Ketorolac Tromethamine (Toradol) 30 mg IM NOW ONE Stop: 07/20/19 18:24 Last Admin: 07/20/19 18:32 Dose: 30 mg Documented by: GWEN Vital Signs Vital signs: Vital Signs - 8 hr 07/20/19 16:59 07/20/19 19:26 Temperature 96.8 F L Pulse Rate 81 69 Respiratory Rate 16 Blood Pressure 137/81 134/65 Pulse Oximetry 97 98 [facility] - URI/Sore Throat <ONDINA Rg - Last Filed: 07/20/19 21:30> Medical Records Attestation: I reviewed the patient's medical records. Lab Data Attestation: I reviewed the patient's lab results. Imaging Data Chest x-ray: Radiologist's impression: [address] [address] XRay Report Signed Patient: León Cantrell [facility]#: [id number] : 1990Acct:[id number] Age/Sex: 28 / MDate of Service: 07/20/19 Loc: ED Accession Number: [id number] Procedure: XR chest 2V Ordering Provider: Leena Huizar PROCEDURE: XR CHEST 2V INDICATIONS: Cough, SOB TECHNIQUE: 2 views of the chest were acquired. COMPARISON: [facility], , XR CHEST 1V, 10/08/2018, 18:00. FINDINGS: Surgical changes and devices: None. Lungs and pleura: Lungs are clear. No pleural effusions or pneumothorax. Mediastinum: Mediastinal contours are normal. Heart size is normal. Bones and chest wall: No suspicious bony abnormalities. Soft tissues appear unremarkable. IMPRESSION: Reduced inspiratory volume, no acute disease. Source of cough is not seen. Dictated by: Radhames Nielsen M.D. on 07/20/2019 at 18:42 Approved by: Radhames Nielsen M.D. on 07/20/2019 at 18:43 [facility] Narrative Medical decision making narrative: This is a 28-year-old male who presents emergency department for continued nasal congestion and cough. He recently had a negative strep a test and influenza test. I suspect his symptoms are caused by a virus due to length of illness, lack of other concerning characteristics such as fever and tachycardia, and negative chest x-ray. Less likely pneumonia (due to negative chest x-ray), less likely meningitis (negative Brudzinski and Kernig sign, lack of other symptoms such as fever). Patient was given a dose of dexamethasone and Toradol with improved symptoms. Patient was encouraged to follow up for any worsening symptoms. Return precautions given. Discharge Plan Departure Patient Disposition: Home Clinical Impression: Acute viral pharyngitis Discharge Date/Time: 07/20/19 19:27 Instructions: DI for Viral Pharyngitis Activity Restrictions/Additional Instructions: Thank you for entrusting me with your care today. As discussed, your x-rays negative for any concerning abnormalities such as pneumonia. The dexamethasone given today will last 3-4 days. I prescribed you a nasal spray called Flonase, please use this for the next 2 weeks, place 1 spray in each nostril in the morning and night. This will help decrease postnasal drip and your sore throat. Follow up with your primary care provider in the next few weeks for re- evaluation if your symptoms continue. Return to the emergency department for new or worsening symptoms such as chest pain, shortness of breath, high fevers, or other concerns. Prescriptions: New fluticasone propionate [Flonase Allergy Relief] 50 mcg/actuation spray,suspension 2 spray NASAL DAILY Qty: 15.8 RF: 0 No Action ketoconazole 2 % shampoo 1 applic TOPICAL DIRECTED RF: 0 oseltamivir 75 mg capsule 75 mg PO DAILYX5 RF: 0 Refresh Tears 0.5 % drops 1 drp ophthalmic (eye) DIRECTED RF: 0 diphenhydramine HCl [Benadryl] 25 mg Capsule 25 mg PO BEDTIME PRN (Reason: Sleep) RF: 0
[2019-07-20] MEDS: KETOROLAC 60 MG/2 ML VIAL 30 MG IM (18:32)
[2019-07-20] MEDS: DEXAMETHASONE 10 MG/ML VIAL PO (18:32)
[2019-07-20 19:26] VITALS: BP 134/65; PULSE 69; O2SAT 98
== END 2019-07-20 19:27 | disposition home or self-care (01) ==
PROVIDERS: Emergency Provider Nurse Practitioner
DX: J02.9 Acute pharyngitis, unspecified (principal)
CPT/HCPCS: 71046; 96372; 99282; 99283; J1100; J1885

== ENCOUNTER 2019-07-22 18:27 | Emergency (ER) | payer OTHER, SELFPAY ==
[2019-07-22 18:35] VITALS: BP 131/70; PULSE 71; RESP 18; TEMP 36.8; O2SAT 99; BMI 33.9
--- NOTE | 2019-07-22 18:35 | ED.URI ---
HPI - URI/Sore Throat General Chief Complaint: Upper Respiratory Symptoms Stated Complaint: weakness, not feeling well Time Seen by Provider: 07/22/19 18:35 Source: patient Mode of arrival: Ambulatory Limitations: no limitations History of Present Illness HPI Narrative: 28-year-old male here for evaluation URI like symptoms and weakness and not feeling well and a sore throat. Patient was seen couple days ago had a urgent care. Was discharged home on Tamiflu has been taking this for 2 days. Was seen here in the emergency department a couple days ago for the same symptoms. I did chest x-ray is unremarkable. Reports that he continues to have symptoms. Related Data Home Medications Medication Instructions Recorded Confirmed carboxymethylcellulose sodium 1 drp OPHTHALMIC (EYE) DIRECTED 04/21/18 04/21/18 [Refresh Tears] diphenhydramine HCl [Benadryl] 25 mg PO BEDTIME PRN 04/21/18 07/20/19 ketoconazole 1 applic TOPICAL DIRECTED 07/20/19 07/20/19 oseltamivir 75 mg PO DAILYX5 07/20/19 07/20/19 Previous Rx's Medication Instructions Recorded fluticasone propionate [Flonase 2 spray NASAL DAILY #15.8 ml 07/20/19 Allergy Relief] prednisone 20 mg PO DAILY 2 Days #2 tab 07/22/19 Allergies Allergy/AdvReac Type Severity Reaction Status Date / Time fluoxetine Allergy Severe Rash Verified 07/22/19 18:35 Review of Systems Constitutional Constitutional: Reports fatigue, Reports fever(s) and Reports malaise ENT Ears, Nose, Mouth, and Throat: Reports sore throat Cardiovascular Cardiovascular: Denies chest pain and Denies dyspnea Respiratory Respiratory: Reports cough and Denies dyspnea Integumentary/Breasts Skin/Breast: Denies lesions and Denies rash Neurologic Neurologic: Denies behavioral changes Psychiatric Psychiatric: Denies behavioral changes Endocrine Endocrine: Reports fatigue Hematologic/Lymphatic Hematologic/Lymphatic: Denies easy bleeding and Denies easy bruising Patient History Medical History Adult ADHD (Acute) Healthy adult (Acute) Social History Smoking Status: Never smoker alcohol intake frequency: holidays/special occasions only Substance Use Type: does not use Exam Initial Vital Signs Initial Vital Signs: Vital Signs Temperature 98.3 F 07/22/19 18:35 Pulse Rate 71 07/22/19 18:35 Respiratory Rate 18 07/22/19 18:35 Blood Pressure 131/70 07/22/19 18:35 Pulse Oximetry 99 07/22/19 18:35 Const General: cooperative, comfortable and well developed Orientation: alert, awake and oriented x3 HENMT Head: normal to inspection and normocephalic Ears: TM's normal bilaterally Nose: external nose normal Mouth: oral mucosae normal Resp Effort & Inspection: normal respiratory effort Auscultation: clear to auscultation bilaterally Cardio Rate: regular rate Rhythm: regular rhythm Skin Lesions: no lesions Rashes: no rashes Neuro General: alert and awake Cognition: normal cognition Speech: speech normal Extrem General: normal to inspection and capillary refill normal Psych Appearance: grossly normal and well kempt Course Orders Ordered: ED Orders 07/22/19 19:08 Basic Metabolic Panel Stat Complete Blood Count AUTO DIFF Stat Discontinued Medications Acetaminophen (Tylenol) 650 mg PO NOW ONE Stop: 07/22/19 18:46 Last Admin: 07/22/19 19:09 Dose: 650 mg Documented by: LYNN Prednisone (Deltasone) 20 mg PO NOW ONE Stop: 07/22/19 18:46 Last Admin: 07/22/19 19:10 Dose: 20 mg Documented by: LYNN Vital Signs Vital signs: Vital Signs - 8 hr 07/22/19 18:35 07/22/19 19:43 Temperature 98.3 F Pulse Rate 71 59 L Respiratory Rate 18 17 Blood Pressure 131/70 114/51 L Pulse Oximetry 99 95 MDM - URI/Sore Throat Lab Data Attestation: I reviewed the patient's lab results. Result diagrams: 07/22/19 19:08 07/22/19 19:08 Labs: Lab Results 07/22/19 07/22/19 Range/Units 19:08 19:08 WBC 8.0 (4.5-11.0) X10^3/uL RBC 4.70 (4.5-5.9) X10^6/uL Hgb 14.5 (13.5-17.5) g/dL Hct 41.7 (41-53) % MCV 88.7 (80-100) fL MCH 30.9 (26-34) PG MCHC 34.8 (30-36) % RDW 14.0 (11.6-14.8) % Plt Count 168 (150-400) X10^3/uL Neut % (Auto) 59.7 (50-75) % Lymph % (Auto) 33.1 (25-40) % [place] % (Auto) 6.0 (3-14) % Eos % (Auto) 0.6 L (2-4) % Baso % (Auto) 0.6 (0-2) % Neut # (Auto) 4800 (4480-8431) /uL Lymph # (Auto) 2600 (2800-7394) /uL [place] # (Auto) 500 (0-900) /uL Eos # (Auto) 100 (0-450) /uL Baso # (Auto) 0 (0-100) /uL Sodium 141 (137-145) mmol/L Potassium 4.2 (3.4-5.1) mmol/L Chloride 103 (98-107) mmol/L Carbon Dioxide 29 (22-32) mmol/L BUN 16 (9-20) mg/dL Creatinine 1.00 (0.66-1.25) mg/dL Estimated GFR > 60.0 (>60) mL/min BUN/Creatinine Ratio 16.0 (6-22) Glucose 97 (70-100) mg/dL Calcium 9.2 (8.4-10.2) mg/dL MDM Narrative Medical decision making narrative: Nontoxic appearing, lungs are clear, vital signs unremarkable. Patient was concerned about electrolyte abnormalities so that was checked and they are unremarkable. He is currently on Tamiflu. No indication for antibiotics. Informed patient he continues take Tylenol and ibuprofen. Informed that his symptoms are most consistent with a viral URI. Patient stated that he needed just more time in order to feel better. He is given return precautions. Expressed understanding agreement plan Discharge Plan Departure Patient Disposition: Home Clinical Impression: Upper respiratory infection Qualifiers: URI type: unspecified URI Qualified Code(s): J06.9 - Acute upper respiratory infection, unspecified Discharge Date/Time: 07/22/19 19:43 Instructions: Cough (Alternative Therapy) Activity Restrictions/Additional Instructions: Your next dose of steroids will be tomorrow. Your exam is consistent with a viral upper respiratory infection. Contact your primary provider for follow-up. Return to the emergency department for any new or worsening symptoms Prescriptions: New prednisone 20 mg tablet 20 mg PO DAILY 2 Days Qty: 2 RF: 0 No Action ketoconazole 2 % shampoo 1 applic TOPICAL DIRECTED RF: 0 oseltamivir 75 mg capsule 75 mg PO DAILYX5 RF: 0 fluticasone propionate [Flonase Allergy Relief] 50 mcg/actuation spray,suspension 2 spray NASAL DAILY Qty: 15.8 RF: 0 Refresh Tears 0.5 % drops 1 drp ophthalmic (eye) DIRECTED RF: 0 diphenhydramine HCl [Benadryl] 25 mg Capsule 25 mg PO BEDTIME PRN (Reason: Sleep) RF: 0
[2019-07-22] MEDS: ACETAMINOPHEN 325 MG TABLET 650 MG PO (19:09)
[2019-07-22] MEDS: predniSONE 20 MG TABLET PO (19:10)
[2019-07-22 19:26] LABS: Add Manual Diff / Slide Review NO; Basophils Absolute Auto 0 /uL (0-100); Basophils Percent Auto 0.6 % (0-2); Eosinophils Absolute Auto 100 /uL (0-450); Eosinophils Percent Auto 0.6 % (2-4); Hematocrit 41.7 % (41-53); Hemoglobin 14.5 g/dL (13.5-17.5); Lymphocytes Absolute Auto 2600 /uL (1100-4500); Lymphocytes Percent Auto 33.1 % (25-40); Mean Corpuscular HGB Conc 34.8 % (30-36); Mean Corpuscular Hemoglobin 30.9 PG (26-34); Mean Corpuscular Volume 88.7 fL (80-100); Monocytes Absolute Auto 500 /uL (0-900); Neutrophils Absolute Auto 4800 /uL (1500-7000); Neutrophils Percent Auto 59.7 % (50-75); Platelet Count 168 X10^3/uL (150-400)
[2019-07-22 19:27] LABS: Blood Urea Nitrogen 16 mg/dL (9-20); Calcium 9.2 mg/dL (8.4-10.2); Carbon Dioxide 29 mmol/L (22-32); Chloride 103 mmol/L (98-107); Estimated Glomerular Filt Rate > 60.0 mL/min (>60); Glucose 97 mg/dL (70-100); HEMOLYSIS < 15 (0-50); Potassium 4.2 mmol/L (3.4-5.1); Sodium 141 mmol/L (137-145)
[2019-07-22 19:43] VITALS: BP 114/51; PULSE 59; RESP 17; O2SAT 95
== END 2019-07-22 19:43 | disposition home or self-care (01) ==
PROVIDERS: Emergency Provider Emergency Medicine
DX: J06.9 Acute upper respiratory infection, unspecified (principal)
CPT/HCPCS: 36415; 80048; 85025; 99282; 99283

== ENCOUNTER 2019-09-02 15:51 | Emergency (ER) | payer OTHER, SELFPAY ==
[2019-09-02 16:04] VITALS: BP 143/83; PULSE 91; RESP 18; TEMP 36.5; O2SAT 98
--- NOTE | 2019-09-02 16:04 | PC.NURSE ---
1558 pt in restroom.
[2019-09-02 18:47] VITALS: BP 152/81; PULSE 93; RESP 16; O2SAT 98
--- NOTE | 2019-09-02 18:49 | PC.NURSE ---
pt states that he has had burning sensation to buttocks bilaterally for three days, also to arms on and off
[2019-09-02 19:43] LABS: Add Manual Diff / Slide Review NO; Basophils Absolute Auto 100 /uL (0-100); Basophils Percent Auto 0.7 % (0-2); Eosinophils Absolute Auto 100 /uL (0-450); Eosinophils Percent Auto 0.9 % (2-4); Hematocrit 45.6 % (41-53); Hemoglobin 15.9 g/dL (13.5-17.5); Lymphocytes Absolute Auto 2400 /uL (1100-4500); Lymphocytes Percent Auto 27.6 % (25-40); Mean Corpuscular HGB Conc 34.8 % (30-36); Mean Corpuscular Hemoglobin 30.7 PG (26-34); Mean Corpuscular Volume 88.2 fL (80-100); Monocytes Absolute Auto 600 /uL (0-900); Monocytes Percent Auto 7.3 % (3-14); Neutrophils Absolute Auto 5600 /uL (1500-7000); Neutrophils Percent Auto 63.5 % (50-75); Platelet Count 185 X10^3/uL (150-400); Red Blood Cell Count 5.17 X10^6/uL (4.5-5.9); Red Cell Distribution Width 13.8 % (11.6-14.8); White Blood Cell Count 8.8 X10^3/uL (4.5-11.0)
[2019-09-02 19:55] LABS: Alanine Aminotransferase 44 IU/L (<50); Albumin 4.8 g/dL (3.5-5.0); Albumin Globulin Ratio 1.5 (1.0-2.8); Alkaline Phosphatase 77 U/L (38-126); Aspartate Aminotransferase 26 IU/L (17-59); BUN Creatinine Ratio 16.7 (6-22); Bilirubin Total 0.4 mg/dL (0.2-1.3); Blood Urea Nitrogen 15 mg/dL (9-20); Calcium 9.6 mg/dL (8.4-10.2); Carbon Dioxide 26 mmol/L (22-32); Chloride 103 mmol/L (98-107); Estimated Glomerular Filt Rate > 60.0 mL/min (>60); Globulin 3.3 g/dL (1.7-4.1); Glucose 103 mg/dL (70-100); HEMOLYSIS < 15 (0-50); Magnesium 2.1 mg/dL (1.6-2.3); Sodium 140 mmol/L (137-145); Total Protein 8.1 g/dL (6.3-8.2)
[2019-09-02] MEDS: KETOROLAC 60 MG/2 ML VIAL IM (20:19)
[2019-09-02 20:23] VITALS: BP 150/79; PULSE 81; RESP 16; O2SAT 99
--- NOTE | 2019-09-02 21:31 | ED_ITS ---
HPI - Skin/Abscess/Foreign Bdy <OLIVE Middleton - Last Filed: 09/02/19 21:35> General Chief complaint: Skin/Abscess/Foreign Body Stated complaint: abd, bilateral buttock and leg pain, back pain Time Seen by Provider: 09/02/19 18:48 Source: patient Mode of arrival: Ambulatory Limitations: no limitations History of Present Illness HPI narrative: The patient is a 29-year-old male nonsmoker with history of upper respiratory infection who presents with a chief complaint of tingling on his skin of bilateral buttocks. He states this started 4 days ago. He states he occasionally has a burning sensation on bilateral gluteus area. He denies any fevers nausea vomiting or diarrhea. He states that he had stomachache a few days ago. States that his left ankle hurt a few days ago but it does not hurt anymore. He has tried ibuprofen to feel better. He denies any rash, chest pain, shortness of breath etc.. Patient later states that he is concerned about herpes, but denies any sores or rashes. Related Data Home Medications Medication Instructions Recorded Confirmed carboxymethylcellulose sodium 1 drp OPHTHALMIC (EYE) DIRECTED 04/21/18 04/21/18 [Refresh Tears] diphenhydramine HCl [Benadryl] 25 mg PO BEDTIME PRN 04/21/18 07/20/19 ketoconazole 1 applic TOPICAL DIRECTED 07/20/19 07/20/19 Previous Rx's Medication Instructions Recorded fluticasone propionate [Flonase 2 spray NASAL DAILY #15.8 ml 07/20/19 Allergy Relief] ketorolac 10 mg PO TID PRN #14 tab 09/02/19 Allergies Allergy/AdvReac Type Severity Reaction Status Date / Time fluoxetine Allergy Severe Rash Verified 09/02/19 16:08 Review of Systems <OLIVE Middleton - Last Filed: 09/02/19 21:35> Review of Systems Narrative: GENERAL: Denies chills, fatigue, malaise, fever, sweats. HEENT: Denies sinus pain, ear pain, sore throat, difficulty swallowing, dizziness. RESPIRATORY: Denies dyspnea, cough, wheezing, hemoptysis, sputum. CARDIOVASCULAR: Denies chest pain, palpitations, orthopnea, edema, GASTROINTESTINAL: See HPI : Denies dysuria, frequency, incontinence, hematuria, urinary retention. MUSCULOSKELETAL: See HPI SKIN: See HPI NEUROLOGIC: Denies weakness, headache, numbness, change in speech, confusion, seizures, incoordination. PSYCHIATRIC: No concerning psychosocial issues. 12 point review of systems is negative except for those stated above Patient History <OLIVE Middleton - Last Filed: 09/02/19 21:35> Medical History Adult ADHD (Acute) Healthy adult (Acute) Surgical History No pertinent past surgical history (Acute) Social History Smoking Status: Never smoker Smoking Status: Never smoker alcohol intake frequency: holidays/special occasions only Substance Use Type: does not use Exam <OLIVE Middleton - Last Filed: 09/02/19 21:35> Narrative Exam Narrative: GENERAL: This is a well-nourished, well-developed patient, in mild distress. HEAD: Atraumatic. Normocephalic. No temporal or scalp tenderness. EYES: Pupils equal round and reactive. Extraocular motions intact. No scleral icterus. No injection or drainage. ENT: Nose without bleeding, purulent drainage or septal hematoma. Throat without erythema, tonsillar hypertrophy or exudate. Uvula midline. Airway patent. NECK: Trachea midline. No JVD or lymphadenopathy. Supple, nontender, no meningeal signs. CARDIOVASCULAR: Regular rate and rhythm RESPIRATORY: Clear to auscultation. Breath sounds equal bilaterally. No wheezes, rales, or rhonchi. No cough. No increased respiratory effort. No accessory muscle use. GASTROINTESTINAL: Abdomen soft, non-tender, nondistended. No hepato- splenomegaly, or palpable masses. No guarding. Active bowel sounds all 4 quadrants EXTREMITIES: No clubbing, cyanosis, or edema. No joint tenderness, effusion, or edema noted. BACK: Nontender without deformity or crepitance. No flank tenderness. NEURO: AOx3. Stable gait. No gross cranial nerve deficit. Using all extremities equally. SKIN: No rash or erythema on visible skin, including bilateral gluteus Initial Vital Signs Initial Vital Signs: Vital Signs Temperature 97.7 F 09/02/19 16:04 Pulse Rate 91 H 09/02/19 16:04 Respiratory Rate 18 09/02/19 16:04 Blood Pressure 143/83 H 09/02/19 16:04 Pulse Oximetry 98 09/02/19 16:04 <Garfield Contreras DO - Last Filed: 09/03/19 01:00> Initial Vital Signs Initial Vital Signs: Vital Signs Temperature 97.7 F 09/02/19 16:04 Pulse Rate 91 H 09/02/19 16:04 Respiratory Rate 18 09/02/19 16:04 Blood Pressure 143/83 H 09/02/19 16:04 Pulse Oximetry 98 09/02/19 16:04 Course <OLIVE Middleton - Last Filed: 09/02/19 21:35> Orders Ordered: ED Orders 09/02/19 19:32 Complete Blood Count AUTO DIFF Stat Comprehensive Metabolic Panel Stat Magnesium Stat Discontinued Medications Ketorolac Tromethamine (Toradol) 60 mg IM NOW ONE Stop: 09/02/19 20:16 Last Admin: 09/02/19 20:19 Dose: 60 mg [facility] Vital Signs Vital signs: Vital Signs - 8 hr 09/02/19 18:47 09/02/19 20:23 Pulse Rate 93 H 81 Respiratory Rate 16 16 Blood Pressure [Right Arm] 152/81 H 150/79 H Pulse Oximetry 98 99 <Garfield Contreras DO - Last Filed: 09/03/19 01:00> Orders Ordered: ED Orders 09/02/19 19:32 Complete Blood Count AUTO DIFF Stat Comprehensive Metabolic Panel Stat Magnesium Stat Discontinued Medications Ketorolac Tromethamine (Toradol) 60 mg IM NOW ONE Stop: 09/02/19 20:16 Last Admin: 09/02/19 20:19 Dose: 60 mg [facility]: [facility] Vital Signs Vital signs: Vital Signs - 8 hr 09/02/19 18:47 09/02/19 20:23 Pulse Rate 93 H 81 Respiratory Rate 16 16 Blood Pressure [Right Arm] 152/81 H 150/79 H Pulse Oximetry 98 99 MDM - Skin/Abscess/Foreign Bdy <OLIVE Middleton Last Filed: 09/02/19 21:35> Lab Data Result diagrams: 09/02/19 19:32 09/02/19 19:32 Labs: Lab Results 09/02/19 09/02/19 Range/Units 19:32 19:32 WBC 8.8 (4.5-11.0) X10^3/uL RBC 5.17 (4.5-5.9) X10^6/uL Hgb 15.9 (13.5-17.5) g/dL Hct 45.6 (41-53) % MCV 88.2 (80-100) fL MCH 30.7 (26-34) PG MCHC 34.8 (30-36) % RDW 13.8 (11.6-14.8) % Plt Count 185 (150-400) X10^3/uL Neut % (Auto) 63.5 (50-75) % Lymph % (Auto) 27.6 (25-40) % [place] % (Auto) 7.3 (3-14) % Eos % (Auto) 0.9 L (2-4) % Baso % (Auto) 0.7 (0-2) % Neut # (Auto) 5600 (5774-3660) /uL Lymph # (Auto) 2400 (9022-0977) /uL [place] # (Auto) 600 (0-900) /uL Eos # (Auto) 100 (0-450) /uL Baso # (Auto) 100 (0-100) /uL Sodium 140 (137-145) mmol/L Potassium 4.0 (3.4-5.1) mmol/L Chloride 103 (98-107) mmol/L Carbon Dioxide 26 (22-32) mmol/L BUN 15 (9-20) mg/dL Creatinine 0.90 (0.66-1.25) mg/dL Estimated GFR > 60.0 (>60) mL/min BUN/Creatinine Ratio 16.7 (6-22) Glucose 103 H (70-100) mg/dL Calcium 9.6 (8.4-10.2) mg/dL Magnesium 2.1 (1.6-2.3) mg/dL Total Bilirubin 0.4 (0.2-1.3) mg/dL AST 26 (17-59) IU/L ALT 44 (<50) IU/L Alkaline Phosphatase 77 (38-126) U/L Total Protein 8.1 (6.3-8.2) g/dL Albumin 4.8 (3.5-5.0) g/dL Globulin 3.3 (1.7-4.1) g/dL Albumin/Globulin Ratio 1.5 (1.0-2.8) MDM Narrative Medical decision making narrative: The patient is a 29-year-old male who presents with a chief complaint of a burning sensation on his skin. He has no acute abnormalities on exam, no complaints of systemic illness, no abnormal findings. I discussed with the charge as electrolytes, and try Toradol. I discussed at length that this could be a prodrome of shingles or another virus. Encouraged at length PCP follow-up. Discussed coming back to the emergency department for any acute concerns such as chest pain, shortness of back or inability keep down fluids etc.. Patient has no questions or concerns upon discharge and states understanding of return precautions as well as follow-up care. <Garfield Contreras DO - Last Filed: 09/03/19 01:00> Lab Data Labs: Lab Results 09/02/19 09/02/19 Range/Units 19:32 19:32 WBC 8.8 (4.5-11.0) X10^3/uL RBC 5.17 (4.5-5.9) X10^6/uL Hgb 15.9 (13.5-17.5) g/dL Hct 45.6 (41-53) % MCV 88.2 (80-100) fL MCH 30.7 (26-34) PG MCHC 34.8 (30-36) % RDW 13.8 (11.6-14.8) % Plt Count 185 (150-400) X10^3/uL Neut % (Auto) 63.5 (50-75) % Lymph % (Auto) 27.6 (25-40) % [place] % (Auto) 7.3 (3-14) % Eos % (Auto) 0.9 L (2-4) % Baso % (Auto) 0.7 (0-2) % Neut # (Auto) 5600 (1049-9969) /uL Lymph # (Auto) 2400 (9968-7356) /uL [place] # (Auto) 600 (0-900) /uL Eos # (Auto) 100 (0-450) /uL Baso # (Auto) 100 (0-100) /uL Sodium 140 (137-145) mmol/L Potassium 4.0 (3.4-5.1) mmol/L Chloride 103 (98-107) mmol/L Carbon Dioxide 26 (22-32) mmol/L BUN 15 (9-20) mg/dL Creatinine 0.90 (0.66-1.25) mg/dL Estimated GFR > 60.0 (>60) mL/min BUN/Creatinine Ratio 16.7 (6-22) Glucose 103 H (70-100) mg/dL Calcium 9.6 (8.4-10.2) mg/dL Magnesium 2.1 (1.6-2.3) mg/dL Total Bilirubin 0.4 (0.2-1.3) mg/dL AST 26 (17-59) IU/L ALT 44 (<50) IU/L Alkaline Phosphatase 77 (38-126) U/L Total Protein 8.1 (6.3-8.2) g/dL Albumin 4.8 (3.5-5.0) g/dL Globulin 3.3 (1.7-4.1) g/dL Albumin/Globulin Ratio 1.5 (1.0-2.8) Discharge Plan Departure Patient Disposition: Home Clinical Impression: Tingling of skin Discharge Date/Time: 09/02/19 20:59 Instructions: DI for Numbness/tingling Activity Restrictions/Additional Instructions: Please follow-up with primary care provider in the next few days as we discussed I have given you a prescription of Toradol. This is an NSAID. Do not combine it with other NSAIDs such as Aleve or ibuprofen. I suggest taking it with some food, as it can irritate your stomach. Please monitor for any rashes or visual abnormalities. Please come back to the emergency department for any acute concerns. Prescriptions: New ketorolac 10 mg tablet 10 mg PO TID PRN (Reason: pain) Qty: 14 RF: 0 No Action ketoconazole 2 % shampoo 1 applic TOPICAL DIRECTED RF: 0 fluticasone propionate [Flonase Allergy Relief] 50 mcg/actuation spray,suspension 2 spray NASAL DAILY Qty: 15.8 RF: 0 Refresh Tears 0.5 % drops 1 drp ophthalmic (eye) DIRECTED RF: 0 diphenhydramine HCl [Benadryl] 25 mg Capsule 25 mg PO BEDTIME PRN (Reason: Sleep) RF: 0 Referrals: [facility] [Provider Group]
== END 2019-09-02 20:59 | disposition home or self-care (01) ==
PROVIDERS: Emergency Provider Nurse Practitioner Family
DX: R20.2 Paresthesia of skin (principal)
CPT/HCPCS: 36415; 80053; 83735; 85025; 96372; 99283; 99284; J1885

== ENCOUNTER 2020-01-30 21:51 | Emergency (ER) | payer OTHER, SELFPAY ==
[2020-01-30 22:08] VITALS: BP 145/64; PULSE 72; RESP 18; TEMP 36.9; O2SAT 98; BMI 34.0
--- NOTE | 2020-01-30 23:18 | ED.HA ---
HPI - Headache General Chief Complaint: Headache Stated Complaint: headache,tired,concerned about COVID Time Seen by Provider: 01/30/20 23:00 Source: patient Mode of arrival: Ambulatory Limitations: no limitations History of Present Illness HPI Narrative: Otherwise healthy 29-year-old male here for evaluation of approximately 24 hours of a headache and fatigue. Has felt subjectively short of breath over the past couple days. No cough. No sore throat. Somewhat of sinus congestion. Is concerned about COVID-19. Called the nurse advice line was instructed to come into the emergency department. He did take Tylenol 2 times a day with the last 1 being greater than 6 hours prior to arrival here in the ER. Related Data Home Medications Medication Instructions Recorded Confirmed carboxymethylcellulose sodium 1 drp OPHTHALMIC (EYE) DIRECTED 04/21/18 04/21/18 [Refresh Tears] diphenhydramine HCl [Benadryl] 25 mg PO BEDTIME PRN 04/21/18 07/20/19 ketoconazole 1 applic TOPICAL DIRECTED 07/20/19 07/20/19 Previous Rx's Medication Instructions Recorded fluticasone propionate [Flonase 2 spray NASAL DAILY #15.8 ml 07/20/19 Allergy Relief] ketorolac 10 mg PO TID PRN #14 tab 09/02/19 Allergies Allergy/AdvReac Type Severity Reaction Status Date / Time fluoxetine Allergy Severe Rash Verified 09/02/19 16:08 Review of Systems Constitutional Constitutional: Reports fatigue, Denies fever(s), Reports headache(s) and Reports malaise ENT Ears, Nose, Mouth, and Throat: Reports headache(s), Reports nasal congestion and Denies sore throat Cardiovascular Cardiovascular: Denies chest pain and Reports dyspnea Respiratory Respiratory: Reports dyspnea Gastrointestinal Gastrointestinal: Denies nausea and Denies vomiting Musculoskeletal Musculoskeletal: Denies myalgias and Denies arthralgias Integumentary/Breasts Skin/Breast: Denies lesions and Denies rash Neurologic Neurologic: Denies behavioral changes and Reports headache(s) Psychiatric Psychiatric: Denies behavioral changes Endocrine Endocrine: Reports fatigue Hematologic/Lymphatic Hematologic/Lymphatic: Denies easy bleeding and Denies easy bruising Patient History Medical History Adult ADHD (Acute) Healthy adult (Acute) Social History (Reviewed 06/01/20 @ 04:04 by VIR[place] Fitzgerald Smoking Status: Never smoker Smoking Status: Never smoker alcohol intake frequency: holidays/special occasions only Substance Use Type: does not use Exam Initial Vital Signs Initial Vital Signs: Vital Signs Temperature 98.4 F 01/30/20 22:08 Pulse Rate 72 01/30/20 22:08 Respiratory Rate 18 01/30/20 22:08 Blood Pressure 145/64 H 01/30/20 22:08 Pulse Oximetry 98 01/30/20 22:08 Const General: cooperative, comfortable and well developed Limitations: mental status not altered HENMT Head: normal to inspection and normocephalic Ears: TM's normal bilaterally Throat: posterior oropharynx normal Neck Lymphatic: No lymphadenopathy Resp Effort & Inspection: normal respiratory effort Auscultation: clear to auscultation bilaterally Cardio Rate: regular rate Rhythm: regular rhythm Skin Lesions: no lesions Rashes: no rashes Neuro General: alert, awake and oriented x3 Cognition: normal cognition Speech: speech normal Extrem General: normal to inspection and capillary refill normal Psych Appearance: grossly normal and well kempt Course Orders Ordered: Discontinued Medications Acetaminophen (Tylenol) 975 mg PO NOW ONE Stop: 01/30/20 23:19 Last Admin: 01/30/20 23:22 Dose: 975 mg Documented by: OBI Vital Signs Vital signs: Vital Signs - 8 hr 01/30/20 22:08 Temperature 98.4 F Pulse Rate 72 Respiratory Rate 18 Blood Pressure 145/64 H Pulse Oximetry 98 MDM - Headache MDM Narrative Medical decision making narrative: Nontoxic appearing, lungs are clear. He did state that the medications he was taking prior to arrival were helping his symptoms somewhat. He was given Tylenol here in the ER. He was tested for COVID-19. He was given instructions regarding this for the next couple days until the results return. I feel we could hold on further workup for now. Low suspicion for pneumonia. Hold on a chest x-ray for now. He was given return precautions. He expressed understanding and agreement plan. Discharge Plan Departure Patient Disposition: Home Clinical Impression: Headache Qualifiers: Headache type: unspecified Headache chronicity pattern: unspecified pattern Intractability: not intractable Qualified Code(s): R51 - Headache Discharge Date/Time: 01/31/20 00:11 Instructions: DI for Headache Activity Restrictions/Additional Instructions: Recommend that you stay home and stay isolated into your COVID-19 result has returned. This can take to to 5 days. You can return to work as normal if this is negative. Continue to take Tylenol for your headache. Return to the emergency department for any new or worsening symptoms Prescriptions: No Action ketoconazole 2 % shampoo 1 applic TOPICAL DIRECTED RF: 0 fluticasone propionate [Flonase Allergy Relief] 50 mcg/actuation spray,suspension 2 spray NASAL DAILY Qty: 15.8 RF: 0 Refresh Tears 0.5 % drops 1 drp ophthalmic (eye) DIRECTED RF: 0 diphenhydramine HCl [Benadryl] 25 mg Capsule 25 mg PO BEDTIME PRN (Reason: Sleep) RF: 0 ketorolac 10 mg tablet 10 mg PO TID PRN (Reason: pain) Qty: 14 RF: 0 Stand Alone Forms: Work Release Note
[2020-01-30] MEDS: ACETAMINOPHEN 325 MG TABLET 975 MG PO (23:22)
--- NOTE | 2020-01-30 23:28 | PC.NURSE ---
Patient reports headache different from migraines in the past. Sore throat my voice is changing reports pain in left ear. Patient reports some chest congestion.
[2020-02-01 13:10] LABS: COVID19 Sendout Not Detected (Not Detect)
== END 2020-01-31 00:11 | disposition home or self-care (01) ==
PROVIDERS: Emergency Provider Emergency Medicine
DX: Z03.818 Encounter for observation for suspected exposure to other biological agents ruled out (principal); R51 Headache; R06.02 Shortness of breath; R53.83 Other fatigue
CPT/HCPCS: 87635; 99282; 99283

== ENCOUNTER 2020-04-29 19:41 | Emergency (ER) | payer OTHER, SELFPAY ==
[2020-04-29 19:47] VITALS: BP 116/83; PULSE 81; RESP 14; TEMP 36.8; O2SAT 98; BMI 33.9
--- NOTE | 2020-04-29 20:03 | DI.RAD.S_ITS ---
PROCEDURE: XR CHEST 1V INDICATIONS: chest pain TECHNIQUE: One view of the chest was acquired. COMPARISON: [facility], CR, XR CHEST 2V, 07/20/2019, 18:25. FINDINGS: Surgical changes and devices: None. Lungs and pleura: Lungs are clear. No pleural effusions or pneumothorax. Mediastinum: Mediastinal contours appear normal. Heart size is normal. Bones and chest wall: No suspicious bony lesions. Overlying soft tissues appear unremarkable. IMPRESSION: Chest without acute cardiopulmonary abnormalities. Dictated by: Paul Campbell M.D. on 04/29/2020 at 20:28 Approved by: Paul Campbell M.D. on 04/29/2020 at 20:29
--- NOTE | 2020-04-29 20:12 | ED.CHESTPAIN ---
HPI - Chest Pain General Chief Complaint: Chest Pain Stated Complaint: chest pains Time Seen by Provider: 04/29/20 20:03 Source: patient Mode of arrival: Ambulatory Limitations: no limitations History of Present Illness HPI narrative: Otherwise healthy 29-year-old male here for evaluation sternal chest pain. Patient states that it was a fairly sudden onset while he was sitting on his couch earlier today. He states has been constant since then. It is worse when he moves his arm and especially when he stretches out his chest. Partially reproducible with palpation in the area. Has never had anything like this in the past. Took some ibuprofen prior to coming without any improvement. No shortness of breath. No cough. No abdominal pain. Related Data Home Medications Medication Instructions Recorded Confirmed carboxymethylcellulose sodium 1 drp OPHTHALMIC (EYE) DIRECTED 04/21/18 04/21/18 [Refresh Tears] diphenhydramine HCl [Benadryl] 25 mg PO BEDTIME PRN 04/21/18 07/20/19 ketoconazole 1 applic TOPICAL DIRECTED 07/20/19 07/20/19 Previous Rx's Medication Instructions Recorded fluticasone propionate [Flonase 2 spray NASAL DAILY #15.8 ml 07/20/19 Allergy Relief] ketorolac 10 mg PO TID PRN #14 tab 09/02/19 Allergies Allergy/AdvReac Type Severity Reaction Status Date / Time fluoxetine Allergy Severe Rash Verified 04/29/20 19:51 Review of Systems Constitutional Constitutional: Denies fever(s) and Denies headache(s) ENT Ears, Nose, Mouth, and Throat: Denies headache(s) Cardiovascular Cardiovascular: Reports chest pain, Denies rapid heart rate and Denies dyspnea Respiratory Respiratory: Denies cough and Denies dyspnea Gastrointestinal Gastrointestinal: Denies abdominal pain, Denies nausea and Denies vomiting Integumentary/Breasts Skin/Breast: Denies lesions and Denies rash Neurologic Neurologic: Denies behavioral changes and Denies headache(s) Psychiatric Psychiatric: Denies behavioral changes Hematologic/Lymphatic Hematologic/Lymphatic: Denies easy bleeding and Denies easy bruising Allergic/Immunologic Allergic/Immunologic: Denies urticaria Patient History Medical History Adult ADHD (Acute) Healthy adult (Acute) Surgical History No pertinent past surgical history (Acute) Social History Smoking Status: Never smoker Smoking Status: Never smoker alcohol intake frequency: holidays/special occasions only Substance Use Type: does not use Exam Initial Vital Signs Initial Vital Signs: Vital Signs Temperature 98.2 F 04/29/20 19:47 Pulse Rate 81 04/29/20 19:47 Respiratory Rate 14 04/29/20 19:47 Blood Pressure 116/83 04/29/20 19:47 Pulse Oximetry 98 04/29/20 19:47 Const General: cooperative and comfortable Limitations: mental status not altered HENMT Head: normal to inspection and normocephalic Chest Chest: No crepitus and No tenderness Resp Effort & Inspection: normal respiratory effort Auscultation: clear to auscultation bilaterally Cardio Rate: regular rate Rhythm: regular rhythm GI Inspection: non-distended Palpation: soft Skin Lesions: no lesions Rashes: no rashes Neuro General: patient alert and patient awake Cognition: normal cognition Speech: speech normal Extrem General: normal to inspection and capillary refill normal Psych Appearance: grossly normal and well kempt Course Orders Ordered: ED Orders 04/29/20 20:03 XR chest 1V Stat EKG-12 Lead Stat Vital Signs Vital signs: Vital Signs - 8 hr 04/29/20 19:47 04/29/20 20:45 Temperature 98.2 F Pulse Rate 81 79 Respiratory Rate 14 14 Blood Pressure 116/83 112/61 Pulse Oximetry 98 97 MDM - Chest Pain Imaging Data Chest x-ray: Radiologist's Impression: [address] [address] XRay Report Signed Patient: León Cantrell [facility]#: [id number] : 1990Acct:[id number] Age/Sex: 29 / MDate of Service: 04/29/20 Loc: ED Accession Number: [id number] Procedure: XR chest 1V Ordering Provider: Ronnie De Oliveira D.O. PROCEDURE: XR CHEST 1V INDICATIONS: chest pain TECHNIQUE: One view of the chest was acquired. COMPARISON: [facility], , XR CHEST 2V, 07/20/2019, 18:25. FINDINGS: Surgical changes and devices: None. Lungs and pleura: Lungs are clear. No pleural effusions or pneumothorax. Mediastinum: Mediastinal contours appear normal. Heart size is normal. Bones and chest wall: No suspicious bony lesions. Overlying soft tissues appear unremarkable. IMPRESSION: Chest without acute cardiopulmonary abnormalities. Dictated by: Paul Campbell M.D. on 04/29/2020 at 20:28 Approved by: Paul Campbell M.D. on 04/29/2020 at 20:29 ECG Data Attestation: I personally reviewed and interpreted this ECG as follows: Prior ECG tracings: not available for review Interpretation: Sinus rhythm Ventricular rate 89 Normal axis Normal QRS Normal QTC No ST T wave changes MDM Narrative Medical decision making narrative: Chest x-ray is negative, EKG is unremarkable, pain is reproducible with movement. Low suspicion for ACS. Low suspicion for PE. Feel we can hold on further workup for now. Will have patient continue to take ibuprofen. He is given return precautions. Expressed understanding and agreement plan Discharge Plan Departure Patient Disposition: Home Clinical Impression: Anterior chest wall pain Discharge Date/Time: 04/29/20 20:48 Instructions: DI for Costochondritis Activity Restrictions/Additional Instructions: Recommend that you continue with the anti-inflammatories. You can take 800 mg of ibuprofen/Motrin 3 times a day with some food. You can also supplement this with Tylenol. Also avoid activities that make your symptoms worse. Contact your primary provider for follow-up. Return to the emergency department for any new or worsening symptoms Prescriptions: No Action ketoconazole 2 % shampoo 1 applic TOPICAL DIRECTED RF: 0 fluticasone propionate [Flonase Allergy Relief] 50 mcg/actuation spray,suspension 2 spray NASAL DAILY Qty: 15.8 RF: 0 Refresh Tears 0.5 % drops 1 drp ophthalmic (eye) DIRECTED RF: 0 diphenhydramine HCl [Benadryl] 25 mg Capsule 25 mg PO BEDTIME PRN (Reason: Sleep) RF: 0 ketorolac 10 mg tablet 10 mg PO TID PRN (Reason: pain) Qty: 14 RF: 0
--- NOTE | 2020-04-29 20:35 | PC.NURSE ---
patient came into the ED with complaints of chest pain that is positional and worsens with palpation. He stated that is gets worse when he turns, twists, or when the sternum is depressed.
[2020-04-29 20:45] VITALS: BP 112/61; PULSE 79; RESP 14; O2SAT 97
== END 2020-04-29 20:48 | disposition home or self-care (01) ==
PROVIDERS: Emergency Provider Emergency Medicine
DX: R07.89 Other chest pain (principal)
CPT/HCPCS: 71045; 93005; 99282; 99284

== ENCOUNTER 2020-09-12 15:59 | Emergency (ER) | payer OTHER, SELFPAY ==
[2020-09-12 16:18] VITALS: PULSE 87; O2SAT 98
[2020-09-12 16:21] VITALS: BP 156/83; PULSE 94; RESP 16; TEMP 36.4; O2SAT 96; BMI 33.9
[2020-09-12 16:30] VITALS: BP 119/65; PULSE 73; O2SAT 95
[2020-09-12 16:39] LABS: COVID19 -Nasal RAPID Negative (Negative)
--- NOTE | 2020-09-12 18:12 | ED.GENADULT ---
HPI - General Adult General Chief complaint: Upper Respiratory Symptoms Stated complaint: headache, fever, swollen prostate Time Seen by Provider: 09/12/20 18:03 Source: patient Mode of arrival: Ambulatory Limitations: no limitations Related Data Home Medications Medication Instructions Recorded Confirmed carboxymethylcellulose sodium 1 drp OPHTHALMIC (EYE) DIRECTED 04/21/18 04/21/18 [Refresh Tears] diphenhydramine HCl [Benadryl] 25 mg PO BEDTIME PRN 04/21/18 07/20/19 ketoconazole 1 applic TOPICAL DIRECTED 07/20/19 07/20/19 Previous Rx's Medication Instructions Recorded fluticasone propionate [Flonase 2 spray NASAL DAILY #15.8 ml 07/20/19 Allergy Relief] ketorolac 10 mg PO TID PRN #14 tab 09/02/19 Allergies Allergy/AdvReac Type Severity Reaction Status Date / Time fluoxetine Allergy Severe Rash Verified 04/29/20 19:51 Patient History Medical History (Updated 05/14/20 @ 00:00 by ) Adult ADHD Healthy adult Surgical History No pertinent past surgical history Social History Smoking Status: Never smoker Smoking Status: Never smoker alcohol intake frequency: holidays/special occasions only Substance Use Type: does not use Exam Initial Vital Signs Initial Vital Signs: Vital Signs Pulse Rate 87 09/12/20 16:18 Pulse Oximetry 98 09/12/20 16:18 Course Orders Ordered: ED Orders 09/12/20 16:15 COVID19 Stat Vital Signs Vital signs: Vital Signs - 8 hr 09/12/20 16:18 09/12/20 16:21 09/12/20 16:30 Temperature 97.5 F L Pulse Rate 87 94 H 73 Respiratory Rate 16 Blood Pressure 156/83 H 119/65 Pulse Oximetry 98 96 95 Medical Decision Making Lab Data Labs: Lab Results 09/12/20 Range/Units 16:15 SARS-CoV-2 (PCR) Negative (Negative) Discharge Plan Departure Prescriptions: No Action ketoconazole 2 % shampoo 1 applic TOPICAL DIRECTED RF: 0 fluticasone propionate [Flonase Allergy Relief] 50 mcg/actuation spray,suspension 2 spray NASAL DAILY Qty: 15.8 RF: 0 Refresh Tears 0.5 % drops 1 drp ophthalmic (eye) DIRECTED RF: 0 diphenhydramine HCl [Benadryl] 25 mg Capsule 25 mg PO BEDTIME PRN (Reason: Sleep) RF: 0 ketorolac 10 mg tablet 10 mg PO TID PRN (Reason: pain) Qty: 14 RF: 0
--- NOTE | 2020-09-12 18:13 | ED.GENADULT ---
HPI - General Adult General Chief complaint: Upper Respiratory Symptoms Stated complaint: headache, fever, swollen prostate Time Seen by Provider: 09/12/20 18:03 Source: patient Mode of arrival: Ambulatory Limitations: no limitations History of Present Illness HPI narrative: Patient is a 30-year-old male here for evaluation of a headache, fever and swollen tender left testicle. Despite the stated chief complaint he is not here for a swollen prostate but a left-sided swollen testicle. He denies any fevers. He states that his daughter was exposed to someone 1 week ago that eventually tested positive for COVID. He was concerned about this. He also is here for swelling and tenderness to his left testicle. He has had epididymitis in the past. He states this feels like epididymitis. He denies any urinary symptoms. No sore throat. No rashes. Has not tried anything for the testicular pain. He states that he is not concerned about sexually transmitted diseases as he has not had sexual intercourse in ?sometime ? Related Data Home Medications Medication Instructions Recorded Confirmed carboxymethylcellulose sodium 1 drp OPHTHALMIC (EYE) DIRECTED 04/21/18 04/21/18 [Refresh Tears] diphenhydramine HCl [Benadryl] 25 mg PO BEDTIME PRN 04/21/18 07/20/19 ketoconazole 1 applic TOPICAL DIRECTED 07/20/19 07/20/19 Previous Rx's Medication Instructions Recorded fluticasone propionate [Flonase 2 spray NASAL DAILY #15.8 ml 07/20/19 Allergy Relief] ketorolac 10 mg PO TID PRN #14 tab 09/02/19 Allergies Allergy/AdvReac Type Severity Reaction Status Date / Time fluoxetine Allergy Severe Rash Verified 04/29/20 19:51 Review of Systems Constitutional Constitutional: Reports chills, Denies fever(s) and Reports headache(s) Eyes Eyes: Denies change in vision ENT Ears, Nose, Mouth, and Throat: Reports headache(s), Denies sinus pressure and Denies sore throat Cardiovascular Cardiovascular: Denies chest pain and Denies dyspnea Respiratory Respiratory: Denies cough and Denies dyspnea Gastrointestinal Gastrointestinal: Denies abdominal pain, Denies nausea and Denies vomiting Genitourinary Genitourinary: Denies hematuria, Denies dysuria, Denies genital lesions, Denies dysuria, Denies scrotal swelling, Reports testicular pain and Denies urinary hesitancy Genitourinary: Denies hematuria, Denies dysuria, Denies genital lesions, Denies dysuria and Denies urinary hesitancy Musculoskeletal Musculoskeletal: Denies arthralgias and Denies myalgias Integumentary/Breasts Skin/Breast: Denies lesions and Denies rash Neurologic Neurologic: Denies behavioral changes and Reports headache(s) Psychiatric Psychiatric: Denies behavioral changes Hematologic/Lymphatic On Anticoagulants: No Allergic/Immunologic Allergic/Immunologic: Denies urticaria Patient History Medical History Adult ADHD Healthy adult Surgical History No pertinent past surgical history Social History Smoking Status: Never smoker Smoking Status: Never smoker alcohol intake frequency: holidays/special occasions only Substance Use Type: does not use Exam Initial Vital Signs Initial Vital Signs: Vital Signs Pulse Rate 87 09/12/20 16:18 Pulse Oximetry 98 09/12/20 16:18 Const General: cooperative and comfortable Limitations: mental status not altered [facility] Head: normal to inspection and normocephalic Nose: external nose normal Face and sinus: normal facial exam Mouth: oral mucosae normal Neck Lymphatic: No lymphadenopathy Resp Effort & Inspection: normal respiratory effort Cardio Rate: regular rate External: normal external exam and circumcised Penis: normal penis Meatus: meatus normal Scrotum: scrotum normal Testes: not enlarged, epididymal tenderness on the left and no testicular tenderness Skin Lesions: no lesions Rashes: no rashes Neuro General: patient alert, patient awake and patient oriented x3 Cognition: normal cognition Course Orders Ordered: ED Orders 09/12/20 16:15 COVID19 Stat 09/12/20 18:20 Throat Culture Stat Vital Signs Vital signs: Vital Signs - 8 hr 09/12/20 16:18 09/12/20 16:21 09/12/20 16:30 Temperature 97.5 F L Pulse Rate 87 94 H 73 Respiratory Rate 16 Blood Pressure 156/83 H 119/65 Pulse Oximetry 98 96 95 Medical Decision Making Lab Data Lab results reviewed: Yes I reviewed the patient's lab results. Labs: Lab Results 09/12/20 Range/Units 16:15 SARS-CoV-2 (PCR) Negative (Negative) MDM Narrative Medical decision making narrative: COVID is negative, patient's exam is consistent with tenderness of the epididymis on the left testicle. There are no lumps. There is no swelling noted. Patient states he is not concerned about sexually transmitted diseases. He denies any trauma. No fevers. Suspect this is inflammation we discussed the use of anti-inflammatories. Given he is not concerned about sexually transmitted disease we will hold on antibiotics. He also has other upper respiratory symptoms. Considered orchitis from 1 of the sources. A throat culture was obtained and is pending at the time of discharge we will call if we need to start any antibiotics. Patient was informed of his COVID results. He expressed understanding and agreement Discharge Plan Departure Patient Disposition: Home Clinical Impression: Upper respiratory infection, Epididymitis Instructions: DI for Epididymitis Activity Restrictions/Additional Instructions: Recommend that you take anti-inflammatories such as Motrin or Naprosyn. You can also use ice over the area. Also recommend supportive clothing. Return to the emergency department if you develop new symptoms to include rash, fevers, problems with urinating her any other new or worsening symptoms. Prescriptions: No Action ketoconazole 2 % shampoo 1 applic TOPICAL DIRECTED RF: 0 fluticasone propionate [Flonase Allergy Relief] 50 mcg/actuation spray,suspension 2 spray NASAL DAILY Qty: 15.8 RF: 0 Refresh Tears 0.5 % drops 1 drp ophthalmic (eye) DIRECTED RF: 0 diphenhydramine HCl [Benadryl] 25 mg Capsule 25 mg PO BEDTIME PRN (Reason: Sleep) RF: 0 ketorolac 10 mg tablet 10 mg PO TID PRN (Reason: pain) Qty: 14 RF: 0
== END 2020-09-12 18:33 | disposition home or self-care (01) ==
PROVIDERS: Emergency Medicine; Emergency Provider Emergency Medicine
DX: J06.9 Acute upper respiratory infection, unspecified (principal); N45.1 Epididymitis; R51.9 Headache, unspecified; R50.9 Fever, unspecified; Z20.822 Contact with and (suspected) exposure to COVID-19
CPT/HCPCS: 87070; 87635; 99281; 99282; C9803